=== PATIENT | female | born 1980 | race Caucasian/White ===

== ENCOUNTER 2016-06-20 20:22 | Emergency (ER) | payer OTHER ==
[~2016-06-20] VITALS: Ht 162.6 cm; Wt 70.9 kg
[~2016-06-20 20:22] MED LIST: AMOXICILLIN875 MG PO; BACTRIM DS 8001 TAB PO; NORCO 325 MG-51 TAB PO; PREDNISONE20 MG PO; PROZAC40 MG PO
[2016-06-20 20:25] VITALS: BP 151/79; TEMP 98.8
[2016-06-20] MEDS ORDERED: VITAMIN D32000 I1 PO (20:30)
[2016-06-20 23:05] VITALS: PULSE 70
== END 2016-06-20 23:06 | disposition home or self-care (01) ==
LOC: COL.ER 20:22
DX: M31.30 Wegener's granulomatosis without renal involvement (principal); I77.6 Arteritis, unspecified
CPT/HCPCS: J2930; J7060

== ENCOUNTER 2016-06-22 14:00 | Outpatient (RCR) | payer OTHER ==
[2016-06-21 14:26] VITALS: BP 106/50; PULSE 81; TEMP 98.6
[~2016-06-22] VITALS: Ht 162.6 cm; Wt 70.9 kg
[2016-06-22 13:57] VITALS: BP 117/64; PULSE 63; TEMP 97.9
[~2016-06-22 14:00] MED LIST changes: +VITAMIN D32000 I1 PO
== END 2016-06-22 15:14 | disposition home or self-care (01) ==
LOC: EUO 14:00
DX: I77.6 Arteritis, unspecified (principal)
CPT/HCPCS: J2930; J7050

== ENCOUNTER 2016-08-17 12:00 | Outpatient (RCR) | payer OTHER ==
[2016-08-02] VITALS (10 sets, daily range): BP systolic 106–124; BP diastolic 56–76; PULSE 56–68; TEMP 97.7–98.6
[2016-08-10] VITALS (8 sets, daily range): BP systolic 104–122; BP diastolic 60–70; PULSE 60–72; TEMP 98.1–98.5
[2016-08-17] VITALS (7 sets, daily range): BP systolic 116–128; BP diastolic 61–71; PULSE 68–79; TEMP 97.7–99
[~2016-08-17] VITALS: Ht 162.6 cm; Wt 70.5 kg
[2016-08-24] VITALS (8 sets, daily range): BP systolic 112–126; BP diastolic 65–77; PULSE 67–77; TEMP 97.6–98.1
[2016-08-24] MEDS ORDERED: PREDNISONE20 MG PO (12:02)
== END 2016-08-24 16:36 | disposition home or self-care (01) ==
LOC: EDSTATUS 12:00 → EUO 12:00
DX: M31.30 Wegener's granulomatosis without renal involvement (principal)
CPT/HCPCS: J1200; J7040; J9310

== ENCOUNTER 2016-09-18 09:14 | Emergency (ER) | payer OTHER ==
[~2016-09-18] VITALS: Ht 160 cm; Wt 71.4 kg
[2016-09-18 09:19] VITALS: BP 122/67; TEMP 98.3
[2016-09-18] MEDS ORDERED: SULFAMETHOXAZOLE-TMP (09:35)
[2016-09-18] MEDS ORDERED: BACTROBAN 22GM22 GM TP (09:36)
[2016-09-18 11:01] VITALS: PULSE 79
== END 2016-09-18 11:01 | disposition home or self-care (01) ==
LOC: COL.ER 09:14
DX: H11.32 Conjunctival hemorrhage, left eye (principal); F32.9 Major depressive disorder, single episode, unspecified

== ENCOUNTER → 2016-12-07 | Outpatient (CLI) | payer OTHER ==
[~2016-12-07] MED LIST changes: +BACTROBAN 22GM22 GM TP; +SULFAMETHOXAZOLE-TMP
[2016-12-07 18:11] LABS: BASO % 0.3 % (0.0-2.0); EOS # 0.1 (0.0-0.7); EOS % 0.9 % (0-4.0); GRAN # 4.5 (1.4-6.5); GRAN % 69.3 % (42.2-75.2); LYMPH # 1.3 (1.2-3.4); LYMPH % 20.5 % (20.0-51.0); MEAN CELL VOLUME 92 fl (80.0-100.0); MEAN CORPUSCULAR HGB CONC 33 g/dl (33.0-37.0); MEAN PLATELET VOLUME 10.2 fl (7.4-10.4); MONO # 0.6 (0.1-0.6); MONO % 8.5 % (1.7-9.3); PLATELET COUNT 264 K/mm3 (130-400); RED BLOOD COUNT 3.54 M/mm3 (4.10-5.30); WHITE BLOOD COUNT 6.5 K/mm3 (4.8-10.8)
[2016-12-07 18:12] LABS: MUCOUS Present /lpf; PH 5 (5-8); SQUAMOUS EPITHELIAL 0-2 /hpf; URINE APPEARANCE Clear; URINE BACTERIA Rare /hpf; URINE BILIRUBIN Negative (NEGATIVE); URINE BLOOD 1+ (NEGATIVE); URINE COLOR Yellow; URINE GLUCOSE Negative (NEGATIVE); URINE KETONE Negative (NEGATIVE); URINE LEUKOCYTE ESTERASE Negative (NEGATIVE); URINE PROTEIN(semi-quant) 3+ (NEGATIVE); URINE UROBILINOGEN Negative (NEGATIVE); URINE WBC 0-2 /hpf
[2016-12-07 18:13] LABS: HEMATOCRIT 32.6 % (37.0-47.0); HEMOGLOBIN 10.8 g/dl (12.5-16.0); MEAN CORPUSCULAR HEMOGLOBIN 31 pg (27.0-31.0)
[2016-12-07 18:23] LABS: ADJUSTED CALCIUM 9.4 mg/dL (8.4-10.2); ALANINE AMINOTRANSFERASE 26 U/L (9-52); ALBUMIN 3.7 gm/dL (3.5-5.0); ALKALINE PHOSPHATASE 62 U/L (50-136); ANION GAP 6 mmol/L (7-16); BILIRUBIN,TOTAL 0.3 mg/dL (0.0-1.0); BLOOD UREA NITROGEN 16 mg/dL (7-17); CALCIUM 9.2 mg/dL (8.4-10.2); CARBON DIOXIDE 26 mmol/L (22-30); CHLORIDE 103 mmol/L (98-107); CREATININE, serum 1.18 mg/dL (0.52-1.25); GLUCOSE 84 mg/dL (74-106); POTASSIUM 3.9 mmol/L (3.4-5.0); SODIUM 136 mmol/L (137-145); TOTAL PROTEIN 6.2 gm/dL (6.4-8.2)
[2016-12-07 18:24] LABS: C-REACTIVE PROTEIN < 0.5 mg/dL (0.0-0.9); COLLECTION METHOD CLEAN CATCH
[2016-12-07 18:37] LABS: ERYTHROCYTE SEDIMENTATION RATE 14 mm/hr (0-20)
[2016-12-08 18:43] LABS: IMMUNOGLOBULIN A 56 mg/dL (65-421); IMMUNOGLOBULIN G 451 mg/dL (552-1631); IMMUNOGLOBULIN M, QUANTITATIVE 79 mg/dL (33-293)
== END ==
LOC: COL.LAB 17:22
DX: Z01.89 Encounter for other specified special examinations (principal)

== ENCOUNTER 2017-01-29 07:59 | Outpatient (CLI) | payer OTHER ==
[~2017-01-29] VITALS: Ht 160 cm; Wt 71.0 kg
[~2017-01-29 07:59] MED LIST changes: +SMZ/TMPDS PO; -SULFAMETHOXAZOLE-TMP
[2017-01-29 09:15] VITALS: BP 132/60; PULSE 78; TEMP 98.7
[2017-01-29 09:59] VITALS: BP 118/59; PULSE 61; TEMP 98.9
[2017-01-29 10:31] VITALS: BP 113/64; PULSE 62; TEMP 98.8
[2017-01-29 10:55] VITALS: BP 108/56; PULSE 62; TEMP 98.9
[2017-01-29 11:35] VITALS: BP 112/68; PULSE 68; TEMP 98.7
[2017-01-29 12:08] VITALS: BP 122/68; PULSE 68; TEMP 99.4
== END 2017-01-29 12:15 | disposition home or self-care (01) ==
LOC: COL.AMSURD 07:59 → MEDICAL 10:04 → COL.AMSURD 12:15
DX: M31.30 Wegener's granulomatosis without renal involvement (principal); Z79.899 Other long term (current) drug therapy
CPT/HCPCS: OP; J1200; J7050; J9310

== ENCOUNTER 2020-03-07 15:45 | Emergency (ER) | payer MEDICAID ==
[~2020-03-07] VITALS: Ht 160 cm; Wt 77.3 kg
[2020-03-07 15:51] VITALS: BP 134/61; TEMP 98.5
[2020-03-07 16:44] VITALS: PULSE 88
== END 2020-03-07 16:46 | disposition home or self-care (01) ==
LOC: COL.ER 15:45
DX: S90.122A Contusion of left lesser toe(s) without damage to nail, initial encounter (principal); W20.8XXA Other cause of strike by thrown, projected or falling object, initial encounter